=== PATIENT | female | born 1975 | race Two or more races ===

== ENCOUNTER 2018-10-03 15:40 | Day surgery (SDC) | payer BC ==
[2018-09-28 12:29] VITALS: BMI 25.2
--- NOTE | 2018-10-03 11:08 | HP ---
History & Physical Update - History History: No Change - Physical Physical: No Change - Assessment Assessment: No Change - Plan Plan: No Change
--- NOTE | 2018-10-03 14:09 | OP ---
Operative Note - Note: Operative Date: 10/03/18 Pre-Operative Diagnosis: cervcial stenosis Operation: Anterior cervcial disectomy fusion of C4-C5 and C5-6 Surgeon: Trey Ballard Entry Level Finance: Grisel Avila Anesthesiologist/SCHOOL STANDARDS COACH: Abdirizak Whalen Anesthesia: General Estimated Blood Loss (mls): 20 Fluid Volume Replaced (mls): 700 Operative Report Dictated: Yes
--- NOTE | 2018-10-03 14:11 | SURG ---
Surgery Business Applications Analyst Note Business Applications Analyst: Grisel Avila PA-C Date of Service: 10/03/18 Diagnosis: cervical stenosis Procedure: anterior cervcial disectomy fusion of C4-5 and C5-6 I was present for the entirety of the operative procedure. For further detail, please refer to operative report. Visit type - Case Type Case Type: Scheduled - Emergency Emergency Visit: No - New patient This patient is new to me today: Yes Date on this admission: 10/03/18
[~2018-10-03 15:40] MED LIST: ACETAMINOPHEN 1000 MG/100 ML VIAL (NON FORMULARY) IVPB ONE; ACETAMINOPHEN INJECTION 100 ML IVPB ONE; BUPIVACAINE HCL/PF 0.5% (5 MG/ML) 30 ML VIAL IJ ONE; DEXAMETHASONE SOD PHOSPHATE 4 MG/1 ML VIAL ONE; LACTATED RINGERS SOLUTION 1,000 ML IV SCH; LIDOCAINE 1%/EPI 1:100000 (20 ML MULTI DOSE VIAL) ONE; LIDOCAINE 1%/EPI 1:100000 (50 ML MULTI DOSE VIAL) INF ONE; MIDAZOLAM HCL 2 MG/2 ML SINGLE DOSE VIAL ONE; ONDANSETRON 4 MG/2 ML VIAL ONE; PATIENT'S OWN MEDICATION (NON-FORMULARY) (Rizatriptan Benzoate [Rizatriptan] 10 MG) PO PRN; PROPOFOL 20 ML ONE; ROCURONIUM BROMIDE 50 MG/5 ML SYRINGE ONE; ceFAZolin SODIUM 1 GM VIAL ONE; diazePAM 2 MG TABLET ONE; fentaNYL CITRATE 250 MCG/5 ML VIAL ONE; oxyCODONE HCL 10 MG SUSTAINED ACTING TABLET PO ONE; oxyCODONE HCL 5 MG TABLET PO PRN
[2018-10-03] MEDS: diazePAM 2 MG TABLET PO SCH (17:24)
[2018-10-03] MEDS: KETOROLAC TROMETHAMINE 30 MG/1 ML VIAL IVPUSH PRN (17:27)
[2018-10-03] MEDS: ONDANSETRON 4 MG/2 ML VIAL IVPUSH PRN (17:27)
--- NOTE | 2018-10-03 19:17 | OP ---
DATE OF OPERATION: 10/03/2018 PREOPERATIVE DIAGNOSIS: Cervical stenosis, C4-5 and C5-6. POSTOPERATIVE DIAGNOSIS: Cervical stenosis, C4-5 and C5-6. PROCEDURE PERFORMED: Anterior cervical diskectomy and fusion, C4-5 and C5-6, placement of instrumentation and prosthetic cage, C4-5 and C5-6. SURGEON: Trey Ballard MD TECHNICAL BUSINESS SYSTEMS ANALYST: ALEXIS Casiano ESTIMATED BLOOD LOSS: 50 mL. IV FLUIDS: Per Anesthesia. ANESTHESIA: General/MCP block. COMPLICATIONS: There were none. DISPOSITION: Patient was brought to the PACU in stable condition. INDICATION FOR SURGERY: The patient is a 53-year-old female who has been suffering from pain from her neck down her arm. X-rays and MRI were completed, which noted that she had herniated disks at C4-5 and C5-6. She had gone through an exhaustive course of treatment for this, which included medications, physical therapy as well as injections. Unfortunately, her pain continued to persist despite all this. At this point, risks, benefits, and alternatives were discussed and the patient consented to surgery. OPERATIVE NOTE: The patient was brought to the operating room by the anesthesia staff. After appropriate patient identification was performed, general anesthesia was given, MCP block was also given. The patient was placed supine on the OR bed with her arms tucked in at the sides. A shoulder roll was placed underneath her shoulder to the point that she could tolerate in the preoperative holding area. A needle was taped onto her neck to troy off the C4-5 level. X-rays taken confirmed this was correct. The needle was removed and 10 mL of lidocaine with epinephrine was injected into her neck. At this time, her neck was prepped and draped in a sterile manner. At this point, timeout was completed. A 2-inch incision was made on the left side of her neck. Dissection was carried down to the platysma. The platysma was cut in line with the skin incision. Next, the interval between the sternocleidomastoid and strap muscles was developed. Next, the interval between the carotid sheath and tracheal esophagus was developed. Peanuts were used to elevate off the prevertebral fascia. A needle was placed into the C4-5 disk. X-ray was taken to confirm this was correct. The needle was removed and [place] pins were placed into the body of C4 and C6. A knife was used to incise the disk. Longus colli muscles were elevated off and retractor blades were placed in. Distraction was applied. At this point, the microscope was brought in. Using a series of pituitaries, Kerrisons, and curettes, a diskectomy was completed. The endplates were decorticated at this time. Cages filled with bone graft were placed in. A screw was placed into the body of C4, C5, and C6. [place] pins were removed. AP and lateral x-rays confirmed the instrumentation remained in good position. Final tightening was performed. The platysma was closed with 2-0 Vicryl suture. Skin was closed with 3-0 Monocryl suture. Dermabond was applied, Steri-Strips were applied, a sterile dressing was applied. Patient was placed supine on the OR bed, brought to the PACU in stable condition. TREY BALLARD M.D. [id number]
[2018-10-03] MEDS ORDERED: ONDANSETRON 4 MG/2 ML VIAL IVPUSH ONE (20:00)
[2018-10-03] MEDS: ACETAMINOPHEN 500 MG TABLET (FP) PO SCH (20:38)
[2018-10-03] MEDS: DEXAMETHASONE SOD PHOSPHATE 4 MG/1 ML VIAL IVPB SCH (20:39)
[2018-10-03] MEDS: CEFAZOLIN IVPB SCH (21:09)
[2018-10-03] MEDS: [UNRECOGNIZED DRUG - OTHER] IVPB SCH (21:09)
[2018-10-04] MEDS: ACETAMINOPHEN 500 MG TABLET (FP) PO SCH ×2 (03:01→07:57)
[2018-10-04] MEDS: DEXAMETHASONE SOD PHOSPHATE 4 MG/1 ML VIAL IVPB SCH ×2 (03:02→09:29)
[2018-10-04] MEDS: diazePAM 2 MG TABLET PO SCH (03:10)
[2018-10-04] MEDS: [UNRECOGNIZED DRUG - OTHER] IVPB SCH (05:00)
[2018-10-04] MEDS: CEFAZOLIN IVPB SCH (05:00)
[2018-10-04] MEDS ORDERED: BENZOCAINE/MENTH/CETYLPYRD CL 1 EACH LOZENGE MM PRN (07:02)
--- NOTE | 2018-10-04 07:55 | DS ---
Physical Exam: SUBJECTIVE: Patient seen and examined this am. Complains of a sore throat, no difficulty swallowing. OBJECTIVE: Vital Signs Period Temp Pulse Resp BP Sys/[place]illo Pulse Ox Last 24 Hr 97.6 F-98.8 F 74-97 11-18 133-157/81-98 97-100 PHYSICAL EXAM GENERAL: The patient is awake, alert, and fully oriented, in no acute distress. NECK: Supple. Soft collar in place. Inc c/d/i. No stridor LUNGS: Breath sounds equal, clear to auscultation bilaterally.. HEART: Regular rate and rhythm. ABDOMEN: Soft, nontender, nondistended, normoactive bowel sounds. EXTREMITIES: warm, well-perfused, no edema or swelling noted b/l. Neuro: 5/5 flexion/extension b/l. shoulder shrug equal b/l LABS Laboratory Results - last 24 hr 10/03/18 10/03/18 10/03/18 08:53 09:15 15:23 POC Glucometer 157 152 Urine HCG, Qual Negative 10/04/18 07:06 POC Glucometer 183 Urine HCG, Qual HOSPITAL COURSE: The patient was admitted to the Med-Surg Unit after an elective repair of their cervical stenosis. Now, s/p C4-5 and C6-7 ACDF. The day of surgery, the patient ambulated the hallways with assistance. Narcotic and non-narcotic pain management control was achieved with an oral and IV approach. An xray was obtained and confirmed hardware placement at C4-5 and C5-6, no fractures or dislocations. Cuca-operative IV ABX were administered. DVT prophylaxis was achieved with SCDs and early ambulation. The patient ambulated with Physical Therapy and no services were recommended upon discharge. Narcotic scripts and or muscle relaxants were checked with [facility] prior to escibe. The discharge instructions and an oral pain management plan were reviewed with the patient. All questions answered. Above plan discussed with Dr. Ballard and agreed. Date of Admission:10/03/18 Date of Discharge: 10/04/18 Minutes to complete discharge: 30 Discharge Summary Reason For Visit: C4-6 ANTERIOR CERVICAL DISCECTOMY Condition: Stable - Instructions Diet, Activity, Other Instructions: Post Operative Instructions - Dr Ballard Diet: You may resume your regular diet. We recommend eating plenty of fiber rich foods to prevent constipation, which can be caused by taking narcotic pain medications. You may also use a stool softener such as DulcoEase. We recommend drinking plenty of water unless you are on fluid restrictions for another medical condition. If you are a diabetic, make sure to keep your glucose well controlled as elevated glucose levels promote infection. Medications: You may resume your previous medications unless otherwise instructed by your surgeon, primary care doctor or social work program coordinator. You have been prescribed a Narcotic pain medication. Driving or drinking alcohol is PROHIBITED while taking narcotic pain medication, as is operating any heavy machinery. Activity: No lifting greater than 5 pounds. Wear surgical collar at all times. You should not drive until seen in the office for your first post-operative visit. You may be a passenger for a short time (20-30 minutes) until you are able to tolerate longer distances. Wound Care: Keep area clean and dry. May remove dressing in two (2) days and replace with clean gauze and occlusive dressing such as a tegaderm. NO BATHS. You may shower starting two (2) days after your surgery. When showering, leave the occlusive(plastic) dressing in place and change if it appears wet. Avoid direct water stream onto your incision. General Recommendations: If sitting, use only a straight back chair to ensure proper support, not to exceed a half hour at a time. Lie only on a firm mattress, no couches or recliner chairs. You may lie on your back or side, but not on your abdomen. * Absolutely no bending, stooping, pushing, lifting or straining. * Avoid housework, especially vacuuming or sweeping. * OK to cook, as long as you are not lifting anything heavier than 5 pounds. * Use proper body mechanics to maintain a neutral spine position. * Increasing pain is a red flag telling you to rest. Call your surgeon or report to the ED if you develop: Fevers over 101.5 Chest pain, trouble breathing, calf pain Drainage from the incision (yellow/green, foul smelling) Follow-up Call surgeon's office to schedule your follow-up appointment in two weeks. Referred to following clinics/specialists for follow-up care: Trey Ballard MD [facility]/[place] [address], [address] [place] [id number] [phone] Disposition: HOME - Home Medications Comprehensive Discharge Medication List: Ambulatory Orders Rizatriptan Benzoate [Rizatriptan] 10 mg PO PRN PRN 09/28/18 Diazepam [Valium] 2 mg PO BID PRN #8 tablet MDD 2 10/03/18 Docusate Sodium [Colace] 100 mg PO BID PRN #14 capsule 10/03/18 Oxycodone HCl/Acetaminophen [Percocet 5-325 mg Tablet] 1 - 2 tab PO Q6H PRN #20 tab MDD 6 10/03/18 This patient is new to me today: No Emergency Visit: No Critical Care patient: No - Discharge Referral Referred to [facility] No
[2018-10-04] MEDS: KETOROLAC TROMETHAMINE 30 MG/1 ML VIAL IVPUSH PRN (07:58)
[2018-10-04] MEDS: ONDANSETRON 4 MG/2 ML VIAL IVPUSH PRN (09:29)
[2018-10-04 12:58] VITALS: BP 140/80; PULSE 86; TEMP 98.8
--- NOTE | 2018-10-05 15:29 | PATH ---
Surgical Pathology Report Patient Name: ROBINA CLARK Med. Rec. #: [id number] /Age/Gender: 1975 (Age: 42) / F Account: [id number] Location: [facility] MED-SURG Taken: 10/03/2018 Received: 10/03/2018 Reported: 10/05/2018 Physicians: Trey Ballard M.D. Specimen(s) Received DISC C4-5, C5-6 Clinical History Cervical stenosis Final Diagnosis C4-6 DISC, DISCECTOMY: CARTILAGINOUS TISSUE WITH FOCAL DEGENERATIVE CHANGE. Electronically Signed Latrice Munguia M.D. Gross Description Received in formalin labeled "C4-6 disc," is a 4.0 x 2.5 x 0.3 cm aggregate of philip fragments of fibrocartilaginous tissue. A banking representative portion is submitted in one cassette. /10/04/2018 saudi10/04/2018
== END 2018-10-04 13:23 | disposition home or self-care (01) ==
LOC: FASUSAT 15:40 → FM/S 15:40 → FASUSAT 10-04 13:23
PROVIDERS: ATTEND Orthopaedic Surgery Orthopaedic Surgery of the Spine
PROC: 0RG10A0 Fusion of Cervical Vertebral Joint with Interbody Fusion Device, Anterior Approach, Anterior Column, Open Approach (ICD-10-PCS; 2018-10-03)
PROC: 0RG10K0 Fusion of Cervical Vertebral Joint with Nonautologous Tissue Substitute, Anterior Approach, Anterior Column, Open Approach (ICD-10-PCS; 2018-10-03)
PROC: 0RB30ZZ Excision of Cervical Vertebral Disc, Open Approach (ICD-10-PCS; principal; 2018-10-03 12:20)
DX: M48.02 Spinal stenosis, cervical region (principal)
CPT/HCPCS: 22551; 22552; 22845; 22853; C1889; 72050-TC-FY; 82962; 84703; 88304-TC; 94760; 97116-GP; 97162-GP; J0131